=== PATIENT | female | born 1970 | race Caucasian/White ===

== ENCOUNTER 2020-04-06 11:06 | Emergency (ER) | payer BC ==
[2020-04-06 12:15] LABS: Bilirubin Negative (Negative); Blood, Urine 1+ (Negative); Clarity Clear (Clear); Glucose, Urine (Dipstick) Normal (Negative); Ketone, Urine Negative (Negative); Leukocyte Negative Leu/uL (Negative); Mucous/LPF Rare LPF (<2+); Nitrite Negative (Negative); Protein, Urine (Dipstick) 50 mg/dL (Neg-Trace); Specific Gravity, Urine 1.023 (1.002-1.036); Urobilinogen Normal mg/dL (Less than 2); WBC/HPF 0-3 HPF (0-3)
[2020-04-06 12:16] LABS: Pregnancy Test - Urine (BHCG) Negative (Negative); Pregu Control Background? CLEAR/WHITE (CLR/WHITE); Pregu Control Bar Appear? YES (CONTROL BAR); Specific Gravity 1.023 (1.002-1.036)
[2020-04-06 12:22] LABS: Bacteria/HPF 1+ HPF (None Seen)
[2020-04-06] MEDS ORDERED: Ketorolac Tromethamine 30 MG/ML VIAL ONE (12:31)
[2020-04-06] MEDS ORDERED: Ondansetron PF 4 MG/2 ML Vial ONE (12:31)
[2020-04-06] MEDS ORDERED: cloNIDine 0.1 MG TAB ONE ×3 (12:31→12:55)
[2020-04-06 12:53] LABS: #Basophils 0.1 thou/uL (0.0-0.2); #Eosinphils 0.1 thou/uL (0.0-0.7); #Lymphocytes 2.6 thou/uL (1.20-3.40); #Monocytes 0.4 thou/uL (0.11-0.59); %Eosinophils 0.9 % (0.0-10.0); %Lymphocytes 28.6 % (21.0-51.0); %Monocytes 4.6 % (0.0-10.0); Hemoglobin 15.4 g/dL (12.0-16.0); Mean Corpuscular HGB CONC 33.6 g/dL (32.0-36.0); Mean Corpuscular Hemoglobin 31.1 pg (27.0-31.0); Mean Corpuscular Volume 92.6 fL (78.0-98.0); Mean Platelet Volume 6.3 fL (7.4-10.4); Platelet Count 404 thou/uL (130-400); RBC Distribution Width 12.1 % (11.5-14.5); Red Blood Cell (RBC) Count 4.93 mill/uL (4.20-5.40); White Blood Cell (WBC) Count 9.2 thou/uL (4.8-10.8)
--- NOTE | 2020-04-06 13:00 | RAD ---
Exam: Chest one view HISTORY:Generalized weakness x1 month. Comparison: None FINDINGS: Cardiac silhouette: Normal Aorta: Unremarkable Pulmonary vessels: Normal Costophrenic angles: Clear LUNGS: No masses or consolidation. Pneumothorax: None Osseous abnormalities: Rightward scoliosis of the thoracic spine. IMPRESSION: No acute cardiopulmonary process.
[2020-04-06 13:13] LABS: ALT (SGPT) 18 U/L (8-55); AST (SGOT) 17 U/L (5-34); Albumin 4.7 g/dL (3.5-5.0); Alkaline Phosphatase 78 U/L (40-110); Anion Gap 16 mmol/L (10-20); BUN (Urea Nitrogen) 12 mg/dL (9.8-20.1); Bilirubin, Total 0.4 mg/dL (0.2-1.2); Calc. Creatinine Clearance 0 mL/min (70-130); Calcium 9.5 mg/dL (7.8-10.44); Carbon Dioxide 23 mmol/L (22-29); Chloride 107 mmol/L (98-107); Globulin 3.5 g/dL (2.4-3.5); Glucose 88 mg/dL (70-105); Potassium 3.5 mmol/L (3.5-5.1); Protein, Total 8.2 g/dL (6.0-8.3); Sodium 142 mmol/L (136-145)
== END 2020-04-06 14:30 | disposition home or self-care (01) ==
LOC: ERS 11:06
DX: F19.939 Other psychoactive substance use, unspecified with withdrawal, unspecified (principal); Z87.891 Personal history of nicotine dependence
CPT/HCPCS: 36415; 71045; 80053; 81003; 81015; 81025; 85025; 87077; 87086; 87186; 93005; 96374; 96375; J1885; J2405